=== PATIENT | female | born 1995 | race Caucasian/White ===

== ENCOUNTER 2023-01-31 08:37 | Day surgery (SDC) | payer OTHER | END 2023-01-31 18:30 | disposition home or self-care (01) | LOC: CIR.AMB 08:37 | PROVIDERS: ATTEND Colon & Rectal Surgery | DX: K64.2 Third degree hemorrhoids (principal); K64.4 Residual hemorrhoidal skin tags; K64.8 Other hemorrhoids; Z20.822 Contact with and (suspected) exposure to COVID-19; K92.1 Melena ==